=== PATIENT | male | born 1995 | race African-American/Black ===

== ENCOUNTER 2017-12-16 11:16 | Emergency (ER) | payer MEDICAID ==
[~2017-12-16] VITALS: Ht 157.5 cm; Wt 90.7 kg
[2017-12-16 11:18] VITALS: BP 129/65
--- NOTE | 2017-12-16 11:31 | NUR ---
PATIENT PRESENTS TO ED WITH C/O upper lip laceration , s/p dog bite an hour ago. tetanus vaccine utd . PT STATES HE WAS PLAYING W/ THE DOG WHEN IT SUDDENLY BIT HIM;NO ACTIVE BLEEDING NOTED . DENIES N/V/D; SKIN IS PINK/WARM/DRY; AAOX4 WITH EVEN AND STEADY GAIT; LUNGS CLEAR BL; HR EVEN AND REGULAR; PT DENIES ANY FEVER, CP, SOB, OR COUGH AT THIS TIME; PATIENT STATES PAIN OF 10/10 AT THIS TIME;PATIENT POSITIONED FOR COMFORT; HOB ELEVATED; BEDRAILS UP X2; BED DOWN. ER MD MADE AWARE OF PT STATUS.
--- NOTE | 2017-12-16 11:38 | NUR ---
DR HUA EVALUATING PT.
[2017-12-16] MEDS ORDERED: LIDOCAINE MPF 1% - **ER/OR** 0 ML ONE (11:40)
[2017-12-16] MEDS ORDERED: LIDOCAINE 1% ***ER ONLY *** 10 MG/ML VIAL INJ ONE (11:40)
[2017-12-16] MEDS ORDERED: LIDOCAINE MPF 1% - **ER/OR** 5 ML ONE (11:42)
[2017-12-16 12:19] VITALS: BP 129/65
== END 2017-12-16 12:19 | disposition home or self-care (01) ==
LOC: MED 11:16
DX: S01.511A Laceration without foreign body of lip, initial encounter (principal); W54.0XXA Bitten by dog, initial encounter; Y93.89 Activity, other specified; Y92.89 Other specified places as the place of occurrence of the external cause; Y99.8 Other external cause status
CPT/HCPCS: 40650; 99284; J2001